=== PATIENT | male | born 1950 | race Caucasian/White ===

== ENCOUNTER → 2024-09-21 15:29 | Outpatient (REF) | payer OTHER, SELFPAY ==
[2024-09-21 14:16] LABS: % Basophils 0.4 % (0-2); % Eosinophils 1.8 % (0-6); % Immature Granulocytes 0.5 % (0-0.5); % Lymphocytes 16.4 % (20.5-51.1); % Monocytes 8.9 % (1.7-9.3); Absolute Eosinophils 0.2 10^3/uL (0-0.7); Absolute Lymphocytes 1.3 10^3/uL (1.2-3.4); Absolute Monocytes 0.7 10^3/uL (0.1-0.6); Absolute Neutrophils 5.9 10^3/uL (1.4-6.5); Hematocrit 26.7 % (39.0-52.0); Hemoglobin 7.8 g/dL (13.0-18.0); Mean Corp Hgb Conc. 29.2 g/dL (33.0-37.0); Mean Corpuscular Volume 71.8 fL (80.0-94.0); Mean Platelet Volume 11.8 fL (7.4-10.4); Nucleated Red Blood Cells % 0 % (-); Platelet Count 212 10^3/uL (130-400); Red Blood Cell Count 3.72 10^6/uL (4.70-6.10); Red Cell Dist. Width 16.5 % (11.5-14.5); White Blood Cell Count 8.1 10^3/uL (4.8-10.8)
== END ==
LOC: OIDL 15:29
PROVIDERS: ATTENDING PHYSICIAN Internal Medicine Hematology & Oncology
DX: D50.9 Iron deficiency anemia, unspecified (principal)
CPT/HCPCS: 85025

== ENCOUNTER → 2024-10-05 15:40 | Outpatient (REF) | payer OTHER, SELFPAY ==
[2024-10-05 15:36] LABS: % Basophils 0.4 % (0-2); % Immature Granulocytes 0.3 % (0-0.5); % Lymphocytes 23.9 % (20.5-51.1); % Monocytes 10.5 % (1.7-9.3); % Neutrophils 62.9 % (42.2-75.2); Absolute Eosinophils 0.1 10^3/uL (0-0.7); Absolute Lymphocytes 1.6 10^3/uL (1.2-3.4); Absolute Monocytes 0.7 10^3/uL (0.1-0.6); Absolute Neutrophils 4.3 10^3/uL (1.4-6.5); Hematocrit 29.8 % (39.0-52.0); Hemoglobin 8.8 g/dL (13.0-18.0); Mean Corp Hgb Conc. 29.5 g/dL (33.0-37.0); Mean Corpuscular Volume 77.8 fL (80.0-94.0); Mean Platelet Volume 11.6 fL (7.4-10.4); Nucleated Red Blood Cells % 0 % (-); Platelet Count 193 10^3/uL (130-400); Red Blood Cell Count 3.83 10^6/uL (4.70-6.10); White Blood Cell Count 6.9 10^3/uL (4.8-10.8)
[2024-10-05 15:41] LABS: Iron < 20 ug/dl (49-181)
[2024-10-05 15:48] LABS: Total Iron Binding Capacity 434 ug/dl (261-462)
[2024-10-05 16:12] LABS: Anisocytosis 2+; Macrocytosis 2+; Normal RBC Morphology No; Ovalocytes 2+; Tear Drop Red Blood Cells 1+
== END ==
LOC: OIDL 15:40
PROVIDERS: ATTENDING PHYSICIAN Nurse Practitioner Adult Health
DX: D50.9 Iron deficiency anemia, unspecified (principal)
CPT/HCPCS: 82728; 83540; 83550; 85025

== ENCOUNTER → 2024-11-30 08:43 | Outpatient (REF) | payer OTHER, SELFPAY ==
[2024-11-30 14:37] LABS: % Basophils 0.3 % (0-2); % Eosinophils 1.7 % (0-6); % Immature Granulocytes 0.1 % (0-0.5); % Lymphocytes 16.7 % (20.5-51.1); % Monocytes 10.4 % (1.7-9.3); % Neutrophils 70.8 % (42.2-75.2); Absolute Eosinophils 0.2 10^3/uL (0-0.7); Absolute Lymphocytes 1.5 10^3/uL (1.2-3.4); Absolute Monocytes 0.9 10^3/uL (0.1-0.6); Absolute Neutrophils 6.3 10^3/uL (1.4-6.5); Hematocrit 34.8 % (39.0-52.0); Hemoglobin 10.4 g/dL (13.0-18.0); Mean Corp Hgb Conc. 29.9 g/dL (33.0-37.0); Mean Corpuscular Hgb 23.7 pg (27.0-31.0); Mean Corpuscular Volume 79.3 fL (80.0-94.0); Mean Platelet Volume 10.7 fL (7.4-10.4); Platelet Count 175 10^3/uL (130-400); Red Blood Cell Count 4.39 10^6/uL (4.70-6.10); Red Cell Dist. Width 19.2 % (11.5-14.5); White Blood Cell Count 8.9 10^3/uL (4.8-10.8)
== END ==
LOC: OIDL 08:43
PROVIDERS: ATTENDING PHYSICIAN Nurse Practitioner Adult Health
DX: D50.9 Iron deficiency anemia, unspecified (principal)
CPT/HCPCS: 85025

== ENCOUNTER → 2024-12-07 14:29 | Outpatient (REF) | payer OTHER, SELFPAY ==
[2024-12-07 14:44] LABS: % Basophils 0.3 % (0-2); % Eosinophils 1.5 % (0-6); % Immature Granulocytes 0.1 % (0-0.5); % Lymphocytes 17.6 % (20.5-51.1); % Monocytes 10.5 % (1.7-9.3); Absolute Eosinophils 0.1 10^3/uL (0-0.7); Absolute Lymphocytes 1.3 10^3/uL (1.2-3.4); Absolute Monocytes 0.8 10^3/uL (0.1-0.6); Absolute Neutrophils 5.1 10^3/uL (1.4-6.5); Hematocrit 33.2 % (39.0-52.0); Hemoglobin 10.1 g/dL (13.0-18.0); Mean Corp Hgb Conc. 30.4 g/dL (33.0-37.0); Mean Corpuscular Hgb 23.7 pg (27.0-31.0); Mean Corpuscular Volume 77.8 fL (80.0-94.0); Mean Platelet Volume 10.8 fL (7.4-10.4); Platelet Count 167 10^3/uL (130-400); Red Blood Cell Count 4.27 10^6/uL (4.70-6.10); Red Cell Dist. Width 19.7 % (11.5-14.5); White Blood Cell Count 7.3 10^3/uL (4.8-10.8)
== END ==
LOC: OIDL 14:29
PROVIDERS: ATTENDING PHYSICIAN Nurse Practitioner Adult Health
DX: D50.9 Iron deficiency anemia, unspecified (principal)
CPT/HCPCS: 85025

== ENCOUNTER → 2025-03-11 15:18 | Outpatient (REF) | payer BC, SELFPAY ==
[2025-03-11 14:42] LABS: % Basophils 0.4 % (0-2); % Eosinophils 1.6 % (0-6); % Immature Granulocytes 0.3 % (0-0.5); % Lymphocytes 17.1 % (20.5-51.1); % Monocytes 8.1 % (1.7-9.3); % Neutrophils 72.5 % (42.2-75.2); Absolute Eosinophils 0.1 10^3/uL (0-0.7); Absolute Lymphocytes 1.3 10^3/uL (1.2-3.4); Absolute Monocytes 0.6 10^3/uL (0.1-0.6); Absolute Neutrophils 5.5 10^3/uL (1.4-6.5); Hematocrit 34.6 % (39.0-52.0); Mean Corp Hgb Conc. 31.8 g/dL (33.0-37.0); Mean Corpuscular Hgb 26.8 pg (27.0-31.0); Mean Corpuscular Volume 84.2 fL (80.0-94.0); Mean Platelet Volume 11.7 fL (7.4-10.4); Platelet Count 144 10^3/uL (130-400); Red Blood Cell Count 4.11 10^6/uL (4.70-6.10); Red Cell Dist. Width 17.2 % (11.5-14.5); White Blood Cell Count 7.6 10^3/uL (4.8-10.8)
== END ==
LOC: OIDL 15:18
PROVIDERS: ATTENDING PHYSICIAN Nurse Practitioner Adult Health
DX: K25.4 Chronic or unspecified gastric ulcer with hemorrhage (principal); D50.9 Iron deficiency anemia, unspecified; G81.90 Hemiplegia, unspecified affecting unspecified side
CPT/HCPCS: 85025

== ENCOUNTER → 2025-03-15 15:00 | Outpatient (REF) | payer BC, OTHER, SELFPAY ==
[2025-03-15 14:07] LABS: % Basophils 0.4 % (0-2); % Eosinophils 1.8 % (0-6); % Immature Granulocytes 0.1 % (0-0.5); % Lymphocytes 14.9 % (20.5-51.1); % Monocytes 9.3 % (1.7-9.3); % Neutrophils 73.5 % (42.2-75.2); Absolute Eosinophils 0.1 10^3/uL (0-0.7); Absolute Lymphocytes 1.2 10^3/uL (1.2-3.4); Absolute Monocytes 0.7 10^3/uL (0.1-0.6); Absolute Neutrophils 5.7 10^3/uL (1.4-6.5); Hematocrit 37.4 % (39.0-52.0); Mean Corp Hgb Conc. 32.1 g/dL (33.0-37.0); Mean Corpuscular Volume 84.2 fL (80.0-94.0); Platelet Count 145 10^3/uL (130-400); Red Blood Cell Count 4.44 10^6/uL (4.70-6.10); Red Cell Dist. Width 17.8 % (11.5-14.5); White Blood Cell Count 7.8 10^3/uL (4.8-10.8)
[2025-03-15 15:48] LABS: ALT (SGPT) 25 U/L (0-50); AST (SGOT) 25 U/L (17-59); Albumin 4.1 g/dl (3.5-5.0); Alkaline Phosphatase 83 U/L (38-126); Blood Urea Nitrogen 14 mg/dl (9-20); Carbon Dioxide 23 mmol/L (22-30); Chloride 111 mmol/L (98-107); Glucose 127 mg/dl (70-99); Potassium 4.4 mmol/L (3.5-5.1); Total Bilirubin 0.7 mg/dl (0.2-1.3); Total Protein 6.2 g/dl (6.3-8.2); eGFR > 60.00
[2025-03-15 16:03] LABS: Sodium 143 mmol/L (135-145)
== END ==
LOC: OIDL 15:00
PROVIDERS: ATTENDING PHYSICIAN Nurse Practitioner Adult Health
DX: K25.4 Chronic or unspecified gastric ulcer with hemorrhage (principal); D50.9 Iron deficiency anemia, unspecified; G81.90 Hemiplegia, unspecified affecting unspecified side; C16.9 Malignant neoplasm of stomach, unspecified
CPT/HCPCS: 80053; 85025

== ENCOUNTER → 2025-03-18 13:18 | Outpatient (REF) | payer OTHER, SELFPAY | LOC: RAD 13:18 | PROVIDERS: ATTENDING PHYSICIAN Internal Medicine Hematology & Oncology; FAMILY PHYSICIAN Family Medicine | DX: K25.4 Chronic or unspecified gastric ulcer with hemorrhage (principal); D50.9 Iron deficiency anemia, unspecified; G81.90 Hemiplegia, unspecified affecting unspecified side; C16.9 Malignant neoplasm of stomach, unspecified | CPT/HCPCS: 70470; 71260; 74177; Q9967 ==

== ENCOUNTER → 2025-03-22 16:03 | Outpatient (REF) | payer OTHER, SELFPAY ==
[2025-03-22 14:49] LABS: % Basophils 0.3 % (0-2); % Eosinophils 1.6 % (0-6); % Immature Granulocytes 0.1 % (0-0.5); % Lymphocytes 14.8 % (20.5-51.1); % Neutrophils 74.2 % (42.2-75.2); Absolute Eosinophils 0.1 10^3/uL (0-0.7); Absolute Monocytes 0.6 10^3/uL (0.1-0.6); Hematocrit 38.9 % (39.0-52.0); Hemoglobin 12.6 g/dL (13.0-18.0); Mean Corp Hgb Conc. 32.4 g/dL (33.0-37.0); Mean Corpuscular Hgb 27.8 pg (27.0-31.0); Mean Corpuscular Volume 85.9 fL (80.0-94.0); Mean Platelet Volume 11.1 fL (7.4-10.4); Platelet Count 125 10^3/uL (130-400); Red Blood Cell Count 4.53 10^6/uL (4.70-6.10); Red Cell Dist. Width 18.2 % (11.5-14.5); White Blood Cell Count 6.8 10^3/uL (4.8-10.8)
== END ==
LOC: OIDL 16:03
PROVIDERS: ATTENDING PHYSICIAN Nurse Practitioner Adult Health
DX: K25.4 Chronic or unspecified gastric ulcer with hemorrhage (principal); D50.9 Iron deficiency anemia, unspecified; G81.90 Hemiplegia, unspecified affecting unspecified side; C16.9 Malignant neoplasm of stomach, unspecified
CPT/HCPCS: 85025

== ENCOUNTER 2025-04-15 06:17 | Day surgery (SDC) | payer OTHER, SELFPAY ==
[2025-04-15 10:49] VITALS: BMI 31.8
[2025-04-15 11:05] VITALS: BP 152/83; BMI 31.8
--- NOTE | 2025-04-15 12:16 | PTCARENOTE ---
ok by dr trevino to proceed with procedure after taking 81mg ASA at 0200
[2025-04-15 13:57] VITALS: BP 130/63
[2025-04-15 14:00] VITALS: BP 121/63
[2025-04-15 14:15] VITALS: BP 128/67
[2025-04-15 14:30] VITALS: BP 136/67
[2025-04-15 14:45] VITALS: BP 147/76
== END 2025-04-15 15:11 | disposition home or self-care (01) ==
LOC: GI 06:17
PROVIDERS: ATTENDING PHYSICIAN Internal Medicine Gastroenterology
DX: K25.9 Gastric ulcer, unspecified as acute or chronic, without hemorrhage or perforation (principal); C16.6 Malignant neoplasm of greater curvature of stomach, unspecified; K31.89 Other diseases of stomach and duodenum; I89.9 Noninfective disorder of lymphatic vessels and lymph nodes, unspecified; K86.9 Disease of pancreas, unspecified; R93.3 Abnormal findings on diagnostic imaging of other parts of digestive tract; C16.9 Malignant neoplasm of stomach, unspecified
CPT/HCPCS: 43237; 43239; 88305; 88342; 88360

== ENCOUNTER 2025-06-29 10:49 | Inpatient (IN) | payer OTHER, SELFPAY ==
[2025-06-22 11:45] LABS: Hematocrit 36.7 % (39.0-52.0); Hemoglobin 12.1 g/dL (13.0-18.0); Mean Corp Hgb Conc. 33.0 g/dL (33.0-37.0); Mean Corpuscular Volume 88.9 fL (80.0-94.0); Platelet Count 147 10^3/uL (130-400); Red Cell Dist. Width 13.7 % (11.5-14.5)
[2025-06-22 11:56] LABS: INR 1.08; PT 14.3 Sec (11.4-14.6)
[2025-06-22 11:57] LABS: APTT 29.2 Sec (23.4-35.0)
[2025-06-22 12:07] LABS: ALT (SGPT) 16 U/L (0-50); AST (SGOT) 17 U/L (17-59); Albumin 4.0 g/dl (3.5-5.0); Alkaline Phosphatase 70 U/L (38-126); Blood Urea Nitrogen 14 mg/dl (9-20); Calcium 9.1 mg/dl (8.4-10.2); Carbon Dioxide 27 mmol/L (22-30); Chloride 108 mmol/L (98-107); Glucose 129 mg/dl (70-99); Potassium 4.5 mmol/L (3.5-5.1); Sodium 141 mmol/L (135-145); Total Protein 6.3 g/dl (6.3-8.2); eGFR > 60.00
[2025-06-22 13:27] VITALS: BMI 29.4
[2025-06-29] VITALS (14 sets, daily range): BP systolic 121–167; BP diastolic 57–103; BMI 29.4; BMI 29.9
[2025-06-29] MEDS: TYLENOL 1000 MG PO (11:37)
[2025-06-29] MEDS: NORMOSOL-R/PLASMALYTE-A 1000 IV (11:38)
[2025-06-29] MEDS: NEURONTIN 300 MG PO (11:38)
[2025-06-29] MEDS: HEPARIN 5000 UNITS SC ×2 (12:08→20:04)
--- NOTE | 2025-06-29 17:34 | CON.HOSP ---
Family Physician
-
Family Physician: Leeanne Siu
Chief Complaint
-
Medical consultation postgastrectomy for malignant neoplasm
History of Present Illness
75-year-old male status post gastrectomy with Ese-en- Y anastomosis secondary to malignant neoplasm with tumor invading into liver. The patient is currently in PACU post recovery with oral airway, NG tube placement with scant amount sanguinous
drainage and Estevez catheter draining yellow in color. He is hemodynamically stable. On 04/15/2025 he had EGD and endoscopic ultrasound performed by Dr. René Mitchell showing a 3 cm ulcerated lesion in the greater curvature portion of the body of the
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 The patient has no current fever, chills,
rash, diaphoresis, wheezing, vomiting, diarrhea.
The patient has past medical history of COPD, active smoker 1 pack a day per chart history, hypertension, GERD, CHF, gastric ulcer age 14.
Medical History
Past Medical History
Past Medical History: Reports Other
Additional Past Medical History:
COPD
active smoker 1 pack a day per chart history
Hypertension
GERD
CHF
gastric ulcer age 14
Past Surgical History: Reports Other
Additional Past Surgical History:
post gastrectomy with Ese-en- Y anastomosis secondary to malignant neoplasm with tumor invading into liver 06/29/2025
Social History
Unable to obtain full social history at this time due to: Other (Patient sedation post PACU)
Tobacco: Smoker (1 pack a day)
Family History
Family History: Unable to Obtain (Patient currently in PACU sedated)
Allergies / Home Medications
Allergies reflects when Allergies were last updated in [employer]
Home Medications with original date entered in [employer]
Allergy/Medication List:
Allergies
Allergy/AdvReac Type Severity Reaction Status Date / Time
[facility]ion ([facility] Allergy 'very out Verified 06/29/25 11:17
of it,
couldn't
focus on
anything'
lidocaine (From Xylocaine) Allergy Anaphylaxis Verified 06/29/25 11:17
in dental
office
paroxetine (From Paxil) Allergy 'very out Verified 06/29/25 11:17
of it,
couldn't
focus on
anything'
pollen extracts Allergy seasonal Verified 06/29/25 11:17
allergies
sertraline (From Zoloft) Allergy 'very out Verified 06/29/25 11:17
of it,
couldn't
focus on
anything'
Home Medications
albuterol sulfate 90 mcg/actuation aerosol inhaler (Ventolin HFA) 2 puff inhalation QID PRN SOB 04/15/25
aspirin 81 mg tablet 81 mg PO DAILY 04/15/25
atorvastatin 40 mg tablet 40 mg PO HS 04/15/25
clonidine HCl 0.2 mg tablet 0.2 mg PO BID 04/15/25
fluticasone furoate 200 mcg-vilanterol 25 mcg/dose inhalation powder (Breo Ellipta) 1 inh inhalation DAILY 04/15/25
hydralazine 50 mg tablet 50 mg PO BID 04/15/25
lisinopril 40 mg tablet 40 mg PO DAILY 04/15/25
nebivolol 10 mg tablet 10 mg PO HS 04/15/25
pantoprazole 40 mg tablet,delayed release (Protonix) 40 mg PO HS 04/15/25
umeclidinium 62.5 mcg/actuation blister powder for inhalation (Incruse Ellipta) 1 inh inhalation DAILY 04/15/25
buspirone 5 mg tablet 5 mg PO BID 06/22/25
furosemide 20 mg tablet 20 mg PO Q48H 06/22/25
Review of Systems
-
History Source: Physician and Other (PACU nurse plus chart)
A 12 point Review of Systems was completed except as noted: Yes
Constitutional: Denies Fever or Chills
EENT: Reports Other (NG tube in place draining scant amount sanguinous drainage, oral airway still in place postop anesthesia)
Respiratory: Denies Trouble Breathing or Other (No wheezing)
Cardiac: Denies Diaphoresis
Abdomen/GI: Denies Vomiting or Diarrhea
: Reports Estevez (Draining yellow in color)
Musculoskeletal: Denies Joint Swelling or Edema
Skin: Denies Rash
Psych: Reports Other (Sedated postop anesthesia)
Physical Exam
Vital Signs
Vital Signs
Temp Pulse Resp BP Pulse Ox
98.7 F 74 16 123/66 96
06/29/25 11:25 06/29/25 11:25 06/29/25 11:25 06/29/25 11:25 06/29/25 11:25
Physical Exam
General: Other (NG tube in place draining scant amount sanguinous drainage, oral airway still in place postop anesthesia); Negative Fever or Chills
HEENT: Normocephalic and Oxygen
Respiratory: Clear; Negative Wheezes, Rales or Rhonchi
Cardiac: S1/S2 and Regular Rhythm; Negative Murmur, Rub or Peripheral Edema
GI: Soft and Other (Incisions intact to abdomen ice pack in place)
Genito-urinary: Estevez Catheter (Draining yellow in color)
Musculoskeletal: No Clubbing, No Cyanosis and No Edema
Skin: Warm and Dry; Negative Rash
Neuro: Other (NG tube in place draining scant amount sanguinous drainage, oral airway still in place postop anesthesia)
Psych: Other (Currently still sedated postop anesthesia)
Laboratory Results
-
PT 14.3 Sec (11.4-14.6) 06/22/25 09:23
INR 1.08 06/22/25 09:23
APTT 29.2 Sec (23.4-35.0) 06/22/25 09:23
Total Bilirubin 0.6 mg/dl (0.2-1.3) 06/22/25 09:23
AST 17 U/L (17-59) 06/22/25 09:23
ALT 16 U/L (0-50) 06/22/25 09:23
Alkaline Phosphatase 70 U/L (38-126) 06/22/25 09:23
Impression / Plan
-
Medical consultation
Inpatient MedSurg
#Status post gastrectomy with Ese-en- Y anastomosis secondary to malignant neoplasm with tumor invading into liver
- Continue NG tube to low intermittent suction
- N.p.o.
-IV Normosol 50 cc an hour
- Pain control per attending Dr. Petey Sweeney
- IV Protonix 40 mg daily
- IV cefazolin
- Follow CBC, CMP, INR-pending on admission
#Hx gastric ulcer age 14
-Continue IV Protonix
#COPD no acute exacerbation
#Active smoker-1 pack a day per nurse at bedside
-Cessation order advisement
-nicotine patch 21 mg
- Continue Incruse Ellipta
- Albuterol nebs as needed
#HTN�benign
- Hold p.o. hydralazine, lisinopril,
-IV hydralazine 10 mg every 6 hours SBP> 165 BEEBE>110
#HLD
Hold atorvastatin 40 mg daily
DVT prophylaxis
Subcu heparin
Full code
[2025-06-29 17:57] LABS: Hematocrit 32.7 % (39.0-52.0); Hemoglobin 10.8 g/dL (13.0-18.0); Mean Corp Hgb Conc. 33.0 g/dL (33.0-37.0); Mean Corpuscular Volume 87.7 fL (80.0-94.0); Platelet Count 136 10^3/uL (130-400); Red Cell Dist. Width 13.6 % (11.5-14.5)
[2025-06-29] MEDS: DILAUDID 0.5 MG IV ×2 (18:00→18:14)
[2025-06-29 18:19] LABS: ALT (SGPT) 37 U/L (0-50); AST (SGOT) 39 U/L (17-59); Albumin 3.4 g/dl (3.5-5.0); Alkaline Phosphatase 63 U/L (38-126); Blood Urea Nitrogen 14 mg/dl (9-20); Calcium 7.8 mg/dl (8.4-10.2); Carbon Dioxide 25 mmol/L (22-30); Chloride 108 mmol/L (98-107); Estimated Creatinine Clearance 75 ml/min; Glucose 126 mg/dl (70-99); Potassium 4.3 mmol/L (3.5-5.1); Sodium 138 mmol/L (135-145); Total Protein 5.5 g/dl (6.3-8.2); eGFR > 60.00
[2025-06-29 18:26] LABS: INR 1.12; PT 15.0 Sec (11.4-14.6)
--- NOTE | 2025-06-29 20:00 | PTCARENOTE ---
Pt arrived to [address] [place] [address] at 2000 from PACU. Pt AAOx3, drowsy. R NGT connected to low intermittent suction per order. IVF initiated per order. Admission assessment complete. Pt educated on plan of care including pain management, diet, and nausea
control. IV Zofran given per order. Pt oriented to room, call sullivan within reach, bed locked and in lowes position. Daughter and son-in-law at bedside.
--- NOTE | 2025-06-29 20:00 | W.PN.UPDATE ---
Update Note
Progress Note Update
This is an addendum to H&P written by Yajaira Benson on 06/29/2025. �Patient seen and examined independently with PAPERBACK MACHINE OPERATOR.
75-year-old male past medical history of COPD, current smoker, hypertension, hyperlipidemia, gastric ulcer, GERD, CHF, iron deficiency anemia, presenting for elective gastrectomy with Ese-en-Y anastomosis for recently diagnosed gastric
adenocarcinoma that is invaded the liver.
No operative complications. �Patient has NG tube and Estevez catheter.
Labs show hemoglobin of 10.8.
Hospitalist consult for medication management this patient will be strict NPO. �Continue IV fluids. �Hold all oral medications. �Hold Lasix. �As needed hydralazine in place of antihypertensive medications.
[2025-06-29] MEDS: D5/0.9% SODIUM CHLORIDE 1000 IV (20:04)
[2025-06-29] MEDS: ZOFRAN 4 MG IV (20:45)
[2025-06-29] MEDS: SYMBICORT 160/4.5 MCG INHALER INH (22:34)
[2025-06-29] MEDS: ANCEF 10 IV (23:24)
[2025-06-30] MEDS: D5/0.9% SODIUM CHLORIDE 1000 IV ×3 (03:23→23:19)
[2025-06-30] MEDS: MORPHINE SULFATE 4 MG IV ×3 (03:31→11:26)
[2025-06-30 05:24] VITALS: BP 132/60
[2025-06-30 06:14] LABS: Hematocrit 30.4 % (39.0-52.0); Hemoglobin 9.8 g/dL (13.0-18.0); Mean Corp Hgb Conc. 32.2 g/dL (33.0-37.0); Mean Corpuscular Volume 88.4 fL (80.0-94.0); Platelet Count 140 10^3/uL (130-400); Red Cell Dist. Width 13.5 % (11.5-14.5)
[2025-06-30 06:31] LABS: INR 1.13; PT 15.1 Sec (11.4-14.6)
[2025-06-30 06:43] LABS: ALT (SGPT) 38 U/L (0-50); AST (SGOT) 41 U/L (17-59); Albumin 3.2 g/dl (3.5-5.0); Alkaline Phosphatase 53 U/L (38-126); Blood Urea Nitrogen 14 mg/dl (9-20); Calcium 7.7 mg/dl (8.4-10.2); Carbon Dioxide 27 mmol/L (22-30); Chloride 110 mmol/L (98-107); Estimated Creatinine Clearance 75 ml/min; Glucose 163 mg/dl (70-99); Potassium 4.2 mmol/L (3.5-5.1); Sodium 139 mmol/L (135-145); Total Protein 5.1 g/dl (6.3-8.2); eGFR > 60.00
--- NOTE | 2025-06-30 07:40 | W.PN.HOSP.TC ---
Today's Communication/Plan
-
See plan
Assessment / Plan
Assessment / Plan
Physical Exam
General: Other (NG tube in place draining drainage)
HEENT: Normocephalic
Respiratory: Clear Bilaterally
Cardiac: S1/S2 and Regular Rhythm
GI: Soft and Other (Incisions intact to abdomen ice pack in place)
Genito-urinary: Estevez Catheter (Draining yellow in color)
Musculoskeletal:No Cyanosis and No Edema
Skin: Warm and Dry
Neuro: AAOx3.
Psych: Other (Currently still sedated postop anesthesia)
Assessment/Plan
75-year-old male with past medical history of COPD, current smoker, hypertension, hyperlipidemia, gastric ulcer, GERD, CHF, iron deficiency anemia, history of gastric ulcer presenting for elective gastrectomy with Ese-en-Y anastomosis for recently
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 No operative complications. Patient has NG tube and Estevez catheter. Labs show hemoglobin of 10.8. Hospitalist consult for medication management this patient will be strict NPO. Continue IV
fluids. Hold all oral medications. Hold Lasix. As needed hydralazine in place of antihypertensive medications.
#Status post gastrectomy with Ese-en- Y anastomosis secondary to malignant neoplasm with tumor invading into liver
- Continue NG tube to low intermittent suction but OOB to chair and ambulate and okay to Clamp NGT while ambulating
- Strict N.p.o.
- Pain control per attending Dr. Petey Sweeney
- IV Protonix 40 mg daily
- IV cefazolin
- Follow CBC, CMP, INR
#Hx gastric ulcer age 14
-Continue IV Protonix
#COPD no acute exacerbation
#Active smoker-1 pack a day per nurse at bedside
-Cessation order advisement
-nicotine patch 21 mg
- Continue Incruse Ellipta
- Albuterol nebs as needed
#HTN�benign
- Hold p.o. hydralazine, lisinopril,
-IV hydralazine 10 mg every 6 hours SBP> 165 BEEBE>110
#HLD
Hold atorvastatin 40 mg daily
#COPD, current smoker, CHF?, iron deficiency anemia
DVT prophylaxis
Subcu heparin
Full code
Anticipated Discharge: > 48 hours
Subjective/Interval History
-
Date of Service: June 30, 2025
Patient was seen and examined. He reported abdominal pain from his surgery as expected. Otherwise denied chest pain, SOB, fever.
Objective Data
-
Labs:
Laboratory Results
06/30/25
05:38
WBC 14.8 H
Hgb 9.8 L
Hct 30.4 L
Plt Count 140
PT 15.1 H
INR 1.13
Sodium 139
Potassium 4.2
Chloride 110 H
Carbon Dioxide 27
BUN 14
Creatinine 0.9
Glucose 163 H
Calcium 7.7 L
Total Bilirubin 0.4
AST 41
ALT 38
Alkaline Phosphatase 53
Vital Signs:
Vital Signs
Temp Pulse Resp BP Pulse Ox
98.5 F 70 16 132/60 95
06/30/25 05:24 06/30/25 05:24 06/30/25 05:24 06/30/25 05:24 06/30/25 05:24
I&O
06/29/25 06/30/25 07/01/25
06:59 06:59 06:59
Intake Total 185 / 185
Output Total 1425 / 1425
Balance -1240 / -1240
[2025-06-30 07:45] VITALS: BP 118/55
[2025-06-30] MEDS: SPIRIVA RESPIMAT 2.5 MCG 2 PUFF INH (07:57)
[2025-06-30] MEDS: SYMBICORT 160/4.5 MCG INHALER 2 PUFF INH ×2 (07:57→20:27)
[2025-06-30] MEDS: HEPARIN 5000 UNITS SC ×2 (08:55→19:34)
[2025-06-30] MEDS: NICODERM TRANSDERMAL TRANSDERM (08:55)
[2025-06-30] MEDS: MORPHINE SULFATE 2 MG IV (08:55)
[2025-06-30] MEDS: NSS (PRESERVATIVE FREE) 10 ML IV (08:55)
[2025-06-30] MEDS: PROTONIX IV 40 MG IV (08:55)
[2025-06-30 11:20] VITALS: BP 124/65
--- NOTE | 2025-06-30 12:47 | W.PN.GENERIC ---
Assessment / Plan
-
S/p partial gastrectomy and liver resection POD #1
Stable
Dec Hg noted due to perioperative blood loss. No evidence of active bleeding
OOB to chair and ambulate
Ok to Clamp NGT while ambulating
Await path results
Continue current care
Physician Progress Note
Subjective
C/o incisional pain wiley when moving. No N/V
Objective
Vital Signs
Temp Pulse Resp BP Pulse Ox
98.1 F 74 18 124/65 98
06/30/25 11:20 06/30/25 11:20 06/30/25 11:20 06/30/25 11:20 06/30/25 11:20
Lab Results
06/30/25 05:38
06/30/25 05:38
Abdomen - some distention but soft. Incision - CDI
--- NOTE | 2025-06-30 14:05 | CM ---
Initial assessment completed with patient with daughter in room. Patient lives alone in a 1 story Bungalow with no basement and no steps to enter. 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 He does have a RW in the home. Patient
states he has cervical stenosis and he needs the cane for stability because his L side is weak. Daughter said his R side is also getting weak. Patient plans on scheduling surgery for correction. No in-home services. No HC POA. PCP is Dr. Fallon
[facility] and Pharmacy is [facility] in [place]. Discharge POC: Anticipate [facility] RN. Await therapy eval for additional recommendations. Preference is [facility]. Referral forwarded.
[2025-06-30 15:00] VITALS: BP 146/74
[2025-06-30] MEDS: TORADOL 15 MG IV ×2 (15:19→21:06)
[2025-06-30 19:00] VITALS: BP 148/68
[2025-06-30] MEDS: CATAPRES-TTS-1 0.1 MG TRANSDERM (21:09)
[2025-06-30] MEDS: CATAPRES-TTS-3 0.3 MG TRANSDERM (21:15)
[2025-06-30] MEDS: CHLORASEPTIC/SORE THROAT SPRAY 1 SPRAY PO (22:27)
[2025-06-30 23:00] VITALS: BP 156/69
[2025-07-01] VITALS (10 sets, daily range): BP systolic 107–184; BP diastolic 66–96; PULSE 90
[2025-07-01] MEDS: TORADOL 15 MG IV ×4 (01:38→19:21)
[2025-07-01 07:20] LABS: Blood Urea Nitrogen 14 mg/dl (9-20); Calcium 7.6 mg/dl (8.4-10.2); Carbon Dioxide 25 mmol/L (22-30); Chloride 113 mmol/L (98-107); Estimated Creatinine Clearance 84 ml/min; Glucose 127 mg/dl (70-99); Potassium 3.8 mmol/L (3.5-5.1); Sodium 141 mmol/L (135-145); eGFR > 60.00
[2025-07-01 07:45] LABS: Hematocrit 27.3 % (39.0-52.0); Hemoglobin 8.8 g/dL (13.0-18.0); Mean Corp Hgb Conc. 32.2 g/dL (33.0-37.0); Mean Corpuscular Volume 88.1 fL (80.0-94.0); Nucleated Red Blood Cells % 0 % (-); Red Cell Dist. Width 13.7 % (11.5-14.5)
[2025-07-01] MEDS: APRESOLINE 10 MG IV ×2 (08:03→16:49)
[2025-07-01] MEDS: HEPARIN 5000 UNITS SC ×2 (08:05→19:44)
[2025-07-01] MEDS: PROTONIX IV 40 MG IV (08:05)
[2025-07-01] MEDS: NSS (PRESERVATIVE FREE) 10 ML IV (08:05)
[2025-07-01] MEDS: NICODERM TRANSDERMAL TRANSDERM (08:06)
[2025-07-01] MEDS: D5/0.9% SODIUM CHLORIDE 1000 IV ×2 (08:16→18:48)
[2025-07-01] MEDS: SYMBICORT 160/4.5 MCG INHALER 2 PUFF INH ×2 (08:39→19:59)
[2025-07-01] MEDS: SPIRIVA RESPIMAT 2.5 MCG 2 PUFF INH (08:39)
[2025-07-01 09:01] LABS: Platelet Count 118 10^3/uL (130-400)
--- NOTE | 2025-07-01 10:30 | W.PN.HOSP.TC ---
Today's Communication/Plan
-
See plan
Assessment / Plan
Assessment / Plan
Physical Exam
General: Other (NG tube in place draining drainage)
HEENT: Normocephalic
Respiratory: Clear Bilaterally
Cardiac: S1/S2 and Regular Rhythm
GI: Soft and Other (Incisions intact to abdomen ice pack in place)
Genito-urinary: Estevez Catheter (Draining yellow in color)
Musculoskeletal:No Cyanosis and No Edema
Skin: Warm and Dry
Neuro: AAOx3.
Psych: Other (Currently still sedated postop anesthesia)
Assessment/Plan
75-year-old male with past medical history of COPD, current smoker, hypertension, hyperlipidemia, gastric ulcer, GERD, CHF, iron deficiency anemia, history of gastric ulcer presenting for elective gastrectomy with Ese-en-Y anastomosis for recently
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 No operative complications. Patient has NG tube and Estevez catheter. Labs show hemoglobin of 10.8. Hospitalist consult for medication management this patient will be strict NPO. Continue IV
fluids. Hold all oral medications. Hold Lasix. As needed hydralazine in place of antihypertensive medications.
#Status post gastrectomy with Ese-en- Y anastomosis secondary to malignant neoplasm with tumor invading into liver
- Stop NG tube
- Strict N.p.o. with ice chips
- Pain control per attending Dr. Pteey Sweeney
- IV Protonix 40 mg daily
- IV cefazolin
- Follow CBC, CMP, INR
#Anemia
- Post-op, decreasing
- Monitor
#History of gastric ulcer age 14
-Continue IV Protonix
#COPD no acute exacerbation
#Active smoker-1 pack a day per nurse at bedside
-Cessation order advisement
-nicotine patch 21 mg
- Continue Incruse Ellipta
- Albuterol nebs as needed
#HTN�benign
- Hold p.o. meds given stricts NPO
- Clonidine patch placed on 06/30/25
- IV Low Dose scheduled Metoprolol started in place of Nebivolol
-IV hydralazine 10 mg every 6 hours SBP> 165 BEEBE>110
#HLD
- Hold atorvastatin 40 mg daily
#COPD, current smoker, CHF?, iron deficiency anemia
DVT Prophylaxis: Subcutaneous heparin
Code Status: Full code
Anticipated Discharge: > 48 hours
Subjective/Interval History
-
Date of Service: July 01, 2025
Patient was seen and examined. No new symptoms or complaints according to him.
Objective Data
-
Labs:
Laboratory Results
07/01/25
05:33
WBC 11.1 H
Hgb 8.8 L
Hct 27.3 L
Plt Count 118 L
Sodium 141
Potassium 3.8
Chloride 113 H
Carbon Dioxide 25
BUN 14
Creatinine 0.8
Glucose 127 H
Calcium 7.6 L
Vital Signs:
Vital Signs
Temp Pulse Resp BP Pulse Ox
98.3 F 86 16 184/88 94
07/01/25 07:10 07/01/25 08:45 07/01/25 08:45 07/01/25 07:10 07/01/25 08:45
I&O
06/30/25 07/01/25 07/02/25
06:59 06:59 06:59
Intake Total 185 / 185 0 / 0 300 / 300
Output Total 1475 / 1475 1075 / 1075 1125 / 1125
Balance -1290 / -1290 -1075 / -1075 -825 / -825
[2025-07-01] MEDS: MORPHINE SULFATE 2 MG IV ×2 (11:01→22:58)
--- NOTE | 2025-07-01 11:48 | W.PN.GENERIC ---
Assessment / Plan
-
S/p partial gastrectomy with liver resection POD #2
Stable
NGT dc'd
Keep pt NPO with only ice chips
If he continues to do well, will start clear liquid
Dec Hg - perioperative blood loss and dilutional
Will follow
OOB and ambulate
Await path
Physician Progress Note
Subjective
C/o incisional pain ow no nausea
Objective
Vital Signs
Temp Pulse Resp BP Pulse Ox
98.3 F 84 16 172/92 96
07/01/25 11:40 07/01/25 11:40 07/01/25 11:40 07/01/25 11:40 07/01/25 11:40
Lab Results
07/01/25 05:33
07/01/25 05:33
Abdomen - soft. incision - CDI
NGT with min output
[2025-07-01] MEDS: LOPRESSOR 2.5 MG IV ×3 (12:52→21:36)
--- NOTE | 2025-07-01 13:58 | CM ---
CM following re: discharge planning.
Reviewed pt's chart, met with pt and 2 cousins at bedside.
Pt is POD#1 S/p partial gastrectomy and liver resection, continue supportive care.
PT and OT evaluations noted - SNF level of care recommended. Pt is aware, expressed his agreement. A list of SNFs provided, pt preferred [facility]. A referral to [facility] made.
D/C plan: [facility] when medically stable.
CM will follow with discharge plan updates as hospitalization progresses
[2025-07-01] MEDS: ZOFRAN 4 MG IV (19:21)
--- NOTE | 2025-07-01 21:25 | W.PN.UPDATE ---
Update Note
Progress Note Update
RN reports patient HR in 140's-150's Rapid Afib 140/95 98.6, 16, 95%. Patient seen and evaluated. States he was trying to urinate and panicked as he was afraid he was going to wet the bed and that's when his HR went up. Denies any hx of Afib and was
placed on Nobivolol for BP and Furosemide for swelling/ CHF? Lungs clear, HR irregular, +BS 4 quad, voiding without difficulty in urinal, Denies any chest pain, shortness of breath, dizziness or lightheaded at present. Hx of lymphedema, COPD, HF?
EKG noted, labs ordered.
Metoprolol total 7.5mg IV given total
Troponin 0.016, K 3.3, Mag 1.[address] to replete.
HR remains 130's-160's. BP 120/60's Cardizem 10mg IVx1
HR 120's-140's BP 135/[address] at 5mg/hr.
2345 converted to NSR
0045 HR 60's Cardizem infusion at 2.5mg/hr
0120 HR less than 60's, will discontinue Cardizem drip.
Likely due to electrolyte imbalances?
TSH pending
[2025-07-01 21:44] LABS: Hematocrit 30.4 % (39.0-52.0); Hemoglobin 10.1 g/dL (13.0-18.0); Mean Corp Hgb Conc. 33.2 g/dL (33.0-37.0); Mean Corpuscular Volume 85.9 fL (80.0-94.0); Platelet Count 141 10^3/uL (130-400); Red Cell Dist. Width 13.4 % (11.5-14.5)
[2025-07-01] MEDS: LOPRESSOR 5 MG IV (21:54)
[2025-07-01 21:55] LABS: Blood Urea Nitrogen 9 mg/dl (9-20); Calcium 8.3 mg/dl (8.4-10.2); Carbon Dioxide 25 mmol/L (22-30); Chloride 109 mmol/L (98-107); Estimated Creatinine Clearance 96 ml/min; Glucose 140 mg/dl (70-99); Magnesium 1.9 mg/dl (1.6-2.3); Potassium 3.3 mmol/L (3.5-5.1); Sodium 138 mmol/L (135-145); eGFR > 60.00
[2025-07-01 22:07] LABS: Troponin I 0.016 ng/ml
[2025-07-01] MEDS: KCL 270 MEQ IV (22:28)
[2025-07-01] MEDS: CARDIZEM 10 MG IV (22:38)
[2025-07-01] MEDS: MAGNESIUM SULFATE 102 GRAMS IV (22:46)
[2025-07-01] MEDS: CARDIZEM 125 IV (23:11)
--- NOTE | 2025-07-01 23:20 | PTCARENOTE ---
Pt OOB to void and heart rate spiked to 190s and pt in rapid afib. Assisted pt back to bed. Remained in afib with heart rate 140s-160s. BP 140/95. Afebrile. Room air sat 95%. House provider notified. EKG done. Bloods drawn and sent to lab. Pt given
lopressor 2.5mg IV without improvement. Given lopressor 5mg IV without improvement. Pt then given cardizem 10mg IV. Heart rate 130s. Cardizem gtt started at 5mg/hr. Will continue to monitor closely.
[2025-07-02] MEDS: LOPRESSOR IV ×2 (00:18→14:22)
[2025-07-02] MEDS: TORADOL 15 MG IV ×4 (01:09→18:23)
[2025-07-02 03:00] VITALS: BP 120/68
[2025-07-02] MEDS: D5/0.9% SODIUM CHLORIDE 1000 IV ×2 (04:42→15:48)
[2025-07-02 05:53] LABS: Hematocrit 27.6 % (39.0-52.0); Hemoglobin 9.0 g/dL (13.0-18.0); Mean Corp Hgb Conc. 32.6 g/dL (33.0-37.0); Mean Corpuscular Volume 87.3 fL (80.0-94.0); Platelet Count 121 10^3/uL (130-400); Red Cell Dist. Width 13.4 % (11.5-14.5)
[2025-07-02] MEDS: LOPRESSOR 2.5 MG IV (06:12)
[2025-07-02 06:17] LABS: Blood Urea Nitrogen 10 mg/dl (9-20); Calcium 8.2 mg/dl (8.4-10.2); Carbon Dioxide 25 mmol/L (22-30); Chloride 114 mmol/L (98-107); Estimated Creatinine Clearance 96 ml/min; Glucose 119 mg/dl (70-99); Magnesium 2.2 mg/dl (1.6-2.3); Potassium 3.8 mmol/L (3.5-5.1); Sodium 142 mmol/L (135-145); Troponin I 0.034 ng/ml; eGFR > 60.00
[2025-07-02 07:05] VITALS: BP 125/58
--- NOTE | 2025-07-02 07:27 | W.PN.HOSP.TC ---
Today's Communication/Plan
-
Continue to monitor on telemetry
See plan
Assessment / Plan
Assessment / Plan
Physical Exam
General: Other (NG tube in place draining drainage)
HEENT: Normocephalic
Respiratory: Clear Bilaterally
Cardiac: S1/S2 and Regular Rhythm
GI: Soft and Other (Incisions intact to abdomen ice pack in place)
Genito-urinary: Estevez Catheter (Draining yellow in color)
Musculoskeletal:No Cyanosis and No Edema
Skin: Warm and Dry
Neuro: AAOx3.
Psych: Other (Currently still sedated postop anesthesia)
Assessment/Plan
75-year-old male with past medical history of COPD, current smoker, hypertension, hyperlipidemia, gastric ulcer, GERD, CHF, iron deficiency anemia, history of gastric ulcer presenting for elective gastrectomy with Ese-en-Y anastomosis for recently
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 No operative complications. Patient has NG tube and Estevez catheter. Labs show hemoglobin of 10.8. Hospitalist consult for medication management this patient will be strict NPO. Continue IV
fluids. Hold all oral medications. Hold Lasix. As needed hydralazine in place of antihypertensive medications.
#Status post gastrectomy with Ese-en- Y anastomosis secondary to malignant neoplasm with tumor invading into liver
- Stop NG tube
- Diet advanced as per Dr. Sweeney
- Pain control per attending Dr. Petey Sweeney
- IV Protonix 40 mg daily
- IV cefazolin
- Follow CBC, CMP, INR
#Atrial Fibrillation with Rapid Ventricular Response
#Episodes of Asymptomatic Bradycardia
-IV Cardizem was given -- converted to normal sinus rhythm after that
-PRN IV Metoprolol
-30 days of AC when OK from surgical perspective -- I communicated with Dr. Sweeney on 07/02/25, and he recommended that if patient's Hgb is stable for another day, then can start Eliquis
-Additionally, he should follow up with his primary field consultant for consideration of a 30 day monitor to eval for AF
-Continue to monitor on telemetry
#Anemia
- Post-op, decreasing
- Monitor
#History of gastric ulcer age 14
-Continue IV Protonix
#COPD no acute exacerbation
#Active smoker-1 pack a day per nurse at bedside
-Cessation order advisement
-nicotine patch 21 mg
- Continue Incruse Ellipta
- Albuterol nebs as needed
#HTN�benign
- Hold p.o. meds given stricts NPO
- Clonidine patch placed on 06/30/25
- IV Low Dose scheduled Metoprolol started in place of Nebivolol
-IV hydralazine 10 mg every 6 hours SBP> 165 EBEBE>110
#HLD
- Hold atorvastatin 40 mg daily
#COPD, current smoker, CHF?, iron deficiency anemia
DVT Prophylaxis: Subcutaneous heparin
Code Status: Full code
Anticipated Discharge: > 48 hours
Subjective/Interval History
-
Date of Service: July 02, 2025
Patient was seen and examined. He denied any complaints.
Objective Data
-
Labs:
Laboratory Results
07/01/25 07/02/25
21:33 05:47
WBC 12.3 H 8.7
Hgb 10.1 L 9.0 L
Hct 30.4 L 27.6 L
Plt Count 141 121 L
Sodium 138 142
Potassium 3.3 L 3.8
Chloride 109 H 114 H
Carbon Dioxide 25 25
BUN 9 10
Creatinine 0.7 0.7
Glucose 140 H 119 H
Calcium 8.3 L 8.2 L
Vital Signs:
Vital Signs
Temp Pulse Resp BP Pulse Ox
98.8 F 65 16 135/69 95
07/02/25 03:00 07/02/25 06:12 07/02/25 03:00 07/02/25 06:12 07/02/25 03:00
I&O
07/01/25 07/02/25 07/03/25
06:59 06:59 06:59
Intake Total 0 / 0 1300 / 1300 1994
Output Total 1075 / 1075 2625 / 2625
Balance -1075 / -1075 -1325 / -1325 1994
[2025-07-02] MEDS: SPIRIVA RESPIMAT 2.5 MCG 2 PUFF INH (08:08)
[2025-07-02] MEDS: SYMBICORT 160/4.5 MCG INHALER 2 PUFF INH ×2 (08:08→18:32)
[2025-07-02] MEDS: HEPARIN 5000 UNITS SC ×2 (08:48→21:01)
[2025-07-02] MEDS: NICODERM TRANSDERMAL TRANSDERM (08:49)
[2025-07-02] MEDS: PROTONIX IV 40 MG IV (08:49)
[2025-07-02] MEDS: NSS (PRESERVATIVE FREE) 10 ML IV (08:50)
--- NOTE | 2025-07-02 08:50 | PN.CDI ---
CDI
- -
CDI:
Physician Documentation Request
Admit Date: 06/29/25 10:49
Dear Doctor Charanjit,
Patient admitted for gastrectomy.
07/01 Hospitalist PN: 'Anemia - Post-op, decreasing'
07/01 Surgery PN: 'Dec Hg - perioperative blood loss and dilutional'
Laboratory Tests
06/22/25 06/30/25 07/01/25
09:23 05:38 05:33
Hgb 12.1 L 9.8 L 8.8 L
Hct 36.7 L 30.4 L 27.3 L
Based on the above, could you clarify, in your progress note, which of the following is the most likely type of anemia you are evaluating, monitoring and/or treating?
Acute anemia multifactorial blood loss and hemodilution
Acute blood loss anemia
Other
Unable to determine
Use of terms such as suspected, likely, concern for, or probable (associated with a specific diagnosis that is being evaluated, monitored, or treated as if it exists) are acceptable and can be coded in the inpatient setting, when documented at the
time of discharge.
Thank you,
Nesha Willoughby RN, BSN
CDI Specialist
Available via [place] text
Please use your independent medical judgment in providing your response.
--- NOTE | 2025-07-02 09:22 | W.PN.GENERIC ---
Assessment / Plan
-
S/p Partial gastrectomy with liver resection POD #3
Stable
Went to AF earlier today then converted back to NSR
management as per cardiology
Did ok without NGT
Will start liquid diet today
ok to conver some IV meds to PO if necessary. If continues to do well with liquid, we can convert all IV to PO meds tomorrow.
OOB and ambulate
Await pathology results
Physician Progress Note
Subjective
Feeling well. Incisional pain better controlled. No n/v
Objective
Vital Signs
Temp Pulse Resp BP Pulse Ox
98.4 F 71 16 125/58 96
07/02/25 07:05 07/02/25 08:11 07/02/25 08:11 07/02/25 07:05 07/02/25 08:11
Lab Results
07/02/25 05:47
07/02/25 05:47
Abdomen - soft ND. Incision CDI
--- NOTE | 2025-07-02 09:47 | CON.CAR ---
Addendum entered and electronically signed by Chandler Hardy MD 07/02/25 13:35:
- Additionally, he should follow up with his primary automat car attendant for consideration of a 30 day monitor to eval for AF
Addendum entered and electronically signed by Chandler Hardy MD 07/02/25 13:34:
I saw and examined the patient.
The ENTRY LEVEL SOFTWARE DEVELOPER's note was reviewed and I agree with the note.
Comment: 75 yo male with HTN, COPD, smoker, HLD and gastric cancer, who presents for elective gastrectomy for recently diagnosed gastric cancer. He is s/p partial gastrectomy with liver resection by Dr. Sweeney on 06/29/25. Post-op he developed rapid
Afib treated with IV Lopressor then IV Cardizem and he converted back to NSR.
- Recommend 30 days of AC when OK from surgical perspective
Original Note:
Consultation
Consultation Request
Date/Time Consultation Requested: 07/02/25 7:30a
Date/Time Consultation Performed: 07/02/25 9:30a
Requesting Provider: Dr. Donohue
Performing Provider: ALEJANDOR Alves for Dr. Kinney
Reason for Consultation: new onset Afib
Medical History
-
History of Present Illness:
Mr. Brito is a 75 yo male with HTN, COPD, smoker, HLD and gastric cancer, who presents for elective gastrectomy for recently diagnosed gastric cancer. He is s/p partial gastrectomy with liver resection by Dr. Sweeney on 06/29/25. Post-op he developed
rapid Afib treated with IV Lopressor then IV Cardizem and he converted back to NSR. His [id number] score is at least 3 (age, HTN).
Past Medical History
Past Medical History: Other (as above)
Past Surgical History: Other (as above)
Social History
Tobacco: Smoker
Family History
Family History: Reviewed & Not Pertinent
Allergies / Home Medications
Allergy/AdvReac Type Severity Reaction Status Date / Time
bupropion (From Wellbutrin) Allergy 'very out Verified 06/29/25 11:17
of it,
couldn't
focus on
anything'
lidocaine (From Xylocaine) Allergy Anaphylaxis Verified 06/29/25 11:17
in dental
office
paroxetine (From Paxil) Allergy 'very out Verified 06/29/25 11:17
of it,
couldn't
focus on
anything'
pollen extracts Allergy seasonal Verified 06/29/25 11:17
allergies
sertraline (From Zoloft) Allergy 'very out Verified 06/29/25 11:17
of it,
couldn't
focus on
anything'
�Medication �Instructions �Recorded �Confirmed �Type
albuterol sulfate 90 mcg/actuation 2 puff inhalation QID PRN SOB 04/15/25 06/29/25 History
aerosol inhaler (Ventolin HFA)
aspirin 81 mg tablet 81 mg PO DAILY 04/15/25 06/29/25 History
atorvastatin 40 mg tablet 40 mg PO HS 04/15/25 06/29/25 History
clonidine HCl 0.2 mg tablet 0.2 mg PO BID 04/15/25 06/29/25 History
fluticasone furoate 200 1 inh inhalation DAILY 04/15/25 06/29/25 History
mcg-vilanterol 25 mcg/dose
inhalation powder (Breo Ellipta)
hydralazine 50 mg tablet 50 mg PO BID 04/15/25 06/29/25 History
lisinopril 40 mg tablet 40 mg PO DAILY 04/15/25 06/29/25 History
nebivolol 10 mg tablet 10 mg PO HS 04/15/25 06/29/25 History
pantoprazole 40 mg tablet,delayed 40 mg PO HS 04/15/25 06/29/25 History
release (Protonix)
umeclidinium 62.5 mcg/actuation 1 inh inhalation DAILY 04/15/25 06/29/25 History
blister powder for inhalation
(Incruse Ellipta)
buspirone 5 mg tablet 5 mg PO BID 06/22/25 06/29/25 History
furosemide 20 mg tablet 20 mg PO Q48H 06/22/25 06/29/25 History
Review of Systems
-
History Source: Patient
All other systems: Negative unless noted
Physical Exam
Vital Signs
Temp Pulse Resp BP Pulse Ox
98.4 F 71 16 125/58 96
07/02/25 07:05 07/02/25 08:11 07/02/25 08:11 07/02/25 07:05 07/02/25 08:11
Lab Results
07/02/25 05:47
07/02/25 05:47
Troponin I 0.034 ng/ml 07/02/25 05:47
Physical Exam
General: No Apparent Distress
HEENT: Normocephalic and Moist Mucous Membranes
Respiratory: Clear
Cardiac: S1/S2 and Regular Rhythm
Breast: Deferred by me
GI: Soft
Musculoskeletal: No Edema
Skin: Warm and Dry
Neuro: AO x 3
Psych: Calm
Impression / Plan
-
Afib - with RVR, acute post-op.
- treated with IV Lopressor then IV Cardizem and converted to NSR.
- maintaining NSR.
- continue to monitor on tele.
- check echo.
- [id number] VASc score is at least 3 (age, HTN).
- will spot him this short episode of Afib post-op and continue to monitor. If Afib recurs, then he will need OAC therapy.
- continue IV Lopressor 2.5mg Q6h since NPO.
HTN - stable on meds.
- continue to monitor with IV Lopressor.
Gastric cancer - s/p partial gastrectomy with liver resection by Dr. Sweeney.
- post-op care per Dr. Sweeney.
Data Reviewed
-
EKG: Tracing Personally Visualized and interpreted
Labs: Labs Reviewed by me
[2025-07-02 11:10] VITALS: BP 123/79
--- NOTE | 2025-07-02 11:45 | CM ---
CM following re: discharge planning.
Reviewed pt's chart, met with pt.
Pt is POD#2 S/p partial gastrectomy and liver resection, continue supportive care.
PT and OT continue recommending SNF level of care A referral to [facility] made yesterday and per [facility] business continuity planning director pt will be accepted for admission when medically stable.
D/C plan: [facility] when medically stable.
CM will follow with discharge plan updates as hospitalization progresses
[2025-07-02] MEDS: FLUSH (NSS) 1 FLUSH IV (12:28)
[2025-07-02 13:56] VITALS: BMI 29.9
[2025-07-02 15:33] VITALS: BP 130/72
[2025-07-02 19:11] VITALS: BP 153/75
[2025-07-02 23:00] VITALS: BP 159/78
[2025-07-03] MEDS: TORADOL 15 MG IV ×2 (00:34→06:30)
[2025-07-03] MEDS: APRESOLINE 10 MG IV ×3 (03:19→18:23)
[2025-07-03 03:48] VITALS: BP 172/76
[2025-07-03] MEDS: MORPHINE SULFATE 2 MG IV (05:03)
[2025-07-03 07:05] VITALS: BP 175/81
[2025-07-03] MEDS: SPIRIVA RESPIMAT 2.5 MCG 2 PUFF INH (07:54)
[2025-07-03] MEDS: SYMBICORT 160/4.5 MCG INHALER 2 PUFF INH ×2 (07:55→19:21)
[2025-07-03] MEDS: NSS (PRESERVATIVE FREE) 10 ML IV (08:36)
[2025-07-03] MEDS: PROTONIX IV 40 MG IV (08:37)
[2025-07-03] MEDS: HEPARIN 5000 UNITS SC (08:37)
[2025-07-03] MEDS: NICODERM TRANSDERMAL 21 MG TRANSDERM (08:44)
--- NOTE | 2025-07-03 09:10 | W.PN.GENERIC ---
Assessment / Plan
-
S/p Partial gastrectomy and liver resection POD #4
Continue to do well.
Tolerated clear liq - will advanced to full liquid
Ok change IV cardiac meds to PO
Eliquis started
IV pain meds dc'd
OOB and ambulate
Ask case mgt to see pt re potential SNIF placement
Await path
Physician Progress Note
Subjective
C/o poor sleep last night, but denied N/V. The abdominal incisional pain better.
Objective
Vital Signs
Temp Pulse Resp BP Pulse Ox
98.3 F 76 16 175/81 98
07/03/25 07:05 07/03/25 07:55 07/03/25 07:55 07/03/25 07:05 07/03/25 07:55
Lab Results
07/02/25 05:47
07/02/25 05:47
Abd - Soft. Incision - CDI
[2025-07-03 11:05] VITALS: BP 132/65
[2025-07-03 14:20] LABS: Hematocrit 30.5 % (39.0-52.0); Hemoglobin 10.4 g/dL (13.0-18.0); Mean Corp Hgb Conc. 34.1 g/dL (33.0-37.0); Mean Corpuscular Volume 85.4 fL (80.0-94.0); Platelet Count 147 10^3/uL (130-400); Red Cell Dist. Width 13.2 % (11.5-14.5)
[2025-07-03 14:40] LABS: Blood Urea Nitrogen 7 mg/dl (9-20); Calcium 8.7 mg/dl (8.4-10.2); Carbon Dioxide 25 mmol/L (22-30); Chloride 109 mmol/L (98-107); Estimated Creatinine Clearance 96 ml/min; Glucose 103 mg/dl (70-99); Potassium 3.7 mmol/L (3.5-5.1); Sodium 140 mmol/L (135-145); eGFR > 60.00
[2025-07-03] MEDS: LASIX 20 MG PO (15:54)
[2025-07-03 15:55] VITALS: BP 164/87
[2025-07-03] MEDS: D5/0.9% SODIUM CHLORIDE IV (15:57)
[2025-07-03] MEDS: PERCOCET 5/325 1 TABLET PO (17:28)
--- NOTE | 2025-07-03 18:39 | W.PN.HOSP.TC ---
Today's Communication/Plan
-
Diet Advanced
PO meds resumed
Continue to monitor on telemetry
Assessment / Plan
Assessment / Plan
Physical Exam
General: Other (NG tube in place draining drainage)
HEENT: Normocephalic
Respiratory: Clear Bilaterally
Cardiac: S1/S2 and Regular Rhythm
GI: Soft and Other (Incisions intact to abdomen ice pack in place)
Genito-urinary: Estevez Catheter (Draining yellow in color)
Musculoskeletal:No Cyanosis and No Edema
Skin: Warm and Dry
Neuro: AAOx3.
Psych: Other (Currently still sedated postop anesthesia)
Assessment/Plan
75-year-old male with past medical history of COPD, current smoker, hypertension, hyperlipidemia, gastric ulcer, GERD, CHF, iron deficiency anemia, history of gastric ulcer presenting for elective gastrectomy with Ese-en-Y anastomosis for recently
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 No operative complications. Patient has NG tube and Estevez catheter. Labs show hemoglobin of 10.8. Hospitalist consult for medication management this patient will be strict NPO. Continue IV
fluids. Hold all oral medications. Hold Lasix. As needed hydralazine in place of antihypertensive medications.
#Status post gastrectomy with Ese-en- Y anastomosis secondary to malignant neoplasm with tumor invading into liver
- Diet advanced as per Dr. Sweeney
- Pain control per attending Dr. Petey Sweeney
- IV Protonix 40 mg daily
- IV cefazolin as per Dr. Petey Sweeney
- Follow CBC, CMP, INR
#Atrial Fibrillation with Rapid Ventricular Response
#Episodes of Asymptomatic Bradycardia
-IV Cardizem was given -- converted to normal sinus rhythm after that
-PRN IV Metoprolol
-30 days of AC when OK from surgical perspective -- Eliquis can be started this evening as per Dr. Sweeney
-Additionally, he should follow up with his primary lamp shade sewer for consideration of a 30 day monitor to eval for AF
-Continue to monitor on telemetry
#Anemia
#Acute anemia multifactorial blood loss and hemodilution
- Post-op, decreasing
- Monitor
#History of gastric ulcer age 14
-Protonix IV-->PO otday
#COPD no acute exacerbation
#Active smoker-1 pack a day per nurse at bedside
-Cessation order advisement
-nicotine patch 21 mg
- Continue Incruse Ellipta
- Albuterol nebs as needed
#HTN�benign
- Resume home PO meds
- Clonidine patch placed on 06/30/25 but now stopped since transitioning to PO Clonidine
#HLD
- Resumed home atorvastatin 40 mg daily
#COPD, current smoker, CHF?, iron deficiency anemia
DVT Prophylaxis: Subcutaneous heparin
Code Status: Full code
Anticipated Discharge: 24 - 48 hours
Subjective/Interval History
-
Date of Service: July 03, 2025
Patient was seen and examined. He denied fever, chest pain, SOB, abdominal pain or any other symptoms or complaints.
Objective Data
-
Labs:
Laboratory Results
07/03/25
13:58
WBC 6.6
Hgb 10.4 L
Hct 30.5 L
Plt Count 147 D
Sodium 140
Potassium 3.7
Chloride 109 H
Carbon Dioxide 25
BUN 7 L
Creatinine 0.7
Glucose 103 H
Calcium 8.7
Vital Signs:
Vital Signs
Temp Pulse Resp BP Pulse Ox
98.9 F 86 16 177/96 97
07/03/25 15:55 07/03/25 18:23 07/03/25 15:55 07/03/25 18:23 07/03/25 15:55
I&O
07/02/25 07/03/25 07/04/25
06:59 06:59 06:59
Intake Total 1300 / 1300 2645 / 2645 300 / 300
Output Total 2625 / 2625 400 / 400 1930 / 193
Balance -1325 / -1325 2245 / 2245 -1630 / -1630
[2025-07-03] MEDS: ELIQUIS 5 MG PO (20:00)
[2025-07-03] MEDS: BUSPAR 5 MG PO (20:01)
[2025-07-03 20:40] VITALS: BP 165/85
[2025-07-03] MEDS: MELATONIN 3 MG PO (21:31)
[2025-07-03] MEDS: BYSTOLIC 10 MG PO (21:31)
[2025-07-03] MEDS: LIPITOR 40 MG PO (21:31)
[2025-07-03] MEDS: ZOFRAN 4 MG IV (22:29)
[2025-07-03 23:50] VITALS: BP 140/84
[2025-07-04] VITALS (7 sets, daily range): BP systolic 98–122; BP diastolic 43–70
[2025-07-04] MEDS: CATAPRES 0.2 MG PO ×2 (00:16→20:10)
--- NOTE | 2025-07-04 01:20 | PTCARENOTE ---
Pt continues to have elevated HR 170-180 with ambulation, denies SOB or dizziness.
[2025-07-04] MEDS: LOPRESSOR 2.5 MG IV (01:59)
--- NOTE | 2025-07-04 02:04 | PTCARENOTE ---
[facility] notified of HR, 2.5ml Lopressor given STAT @ this time. Hr
[2025-07-04 04:46] LABS: Hematocrit 29.0 % (39.0-52.0); Hemoglobin 9.5 g/dL (13.0-18.0); Mean Corp Hgb Conc. 32.8 g/dL (33.0-37.0); Mean Corpuscular Volume 86.6 fL (80.0-94.0); Platelet Count 146 10^3/uL (130-400); Red Cell Dist. Width 13.2 % (11.5-14.5)
[2025-07-04 05:07] LABS: Blood Urea Nitrogen 11 mg/dl (9-20); Calcium 8.5 mg/dl (8.4-10.2); Carbon Dioxide 25 mmol/L (22-30); Chloride 108 mmol/L (98-107); Estimated Creatinine Clearance 84 ml/min; Glucose 125 mg/dl (70-99); Magnesium 1.9 mg/dl (1.6-2.3); Potassium 3.6 mmol/L (3.5-5.1); Sodium 137 mmol/L (135-145); eGFR > 60.00
[2025-07-04] MEDS: BUSPAR 5 MG PO ×2 (07:43→20:10)
[2025-07-04] MEDS: ZESTRIL 40 MG PO (07:43)
[2025-07-04] MEDS: APRESOLINE 50 MG PO (07:44)
[2025-07-04] MEDS: NICODERM TRANSDERMAL 21 MG TRANSDERM (07:45)
[2025-07-04] MEDS: SPIRIVA RESPIMAT 2.5 MCG 2 PUFF INH (07:45)
[2025-07-04] MEDS: ELIQUIS 5 MG PO ×2 (07:45→20:10)
[2025-07-04] MEDS: SYMBICORT 160/4.5 MCG INHALER 2 PUFF INH ×2 (07:45→20:36)
--- NOTE | 2025-07-04 08:21 | W.PN.HOSP.TC ---
Today's Communication/Plan
-
Continue to monitor on telemetry
See plan
Assessment / Plan
Assessment / Plan
Physical Exam
General: Other (NG tube in place draining drainage)
HEENT: Normocephalic
Respiratory: Clear Bilaterally
Cardiac: S1/S2 and Regular Rhythm
GI: Soft and Other (Incisions intact to abdomen ice pack in place)
Genito-urinary: Estevez Catheter (Draining yellow in color)
Musculoskeletal:No Cyanosis and No Edema
Skin: Warm and Dry
Neuro: AAOx3.
Psych: Other (Currently still sedated postop anesthesia)
Assessment/Plan
75-year-old male with past medical history of COPD, current smoker, hypertension, hyperlipidemia, gastric ulcer, GERD, CHF, iron deficiency anemia, history of gastric ulcer presenting for elective gastrectomy with Ese-en-Y anastomosis for recently
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 No operative complications. Patient has NG tube and Estevez catheter. Labs show hemoglobin of 10.8. Hospitalist consult for medication management this patient will be strict NPO. Continue IV
fluids. Hold all oral medications. Hold Lasix. As needed hydralazine in place of antihypertensive medications.
#Status post gastrectomy with Ese-en- Y anastomosis secondary to malignant neoplasm with tumor invading into liver
- Diet advanced as per Dr. Sweeney
- Pain control per attending Dr. Petey Sweeney
- IV Protonix 40 mg daily
- IV cefazolin as per Dr. Petey Sweeney
- Follow CBC, CMP, INR
#Atrial Fibrillation with Rapid Ventricular Response
#Episodes of Asymptomatic Bradycardia
-IV Cardizem was given -- converted to normal sinus rhythm after that
-PRN IV Metoprolol
-30 days of AC when OK from surgical perspective -- Eliquis can be started this evening as per Dr. Sweeney
-Additionally, he should follow up with his primary route sales associate for consideration of a 30 day monitor to eval for AF
-RVR occurred again on 07/04/25 so Diltiazem 240 mg HS started, appreciate cardiology
-Continue to monitor on telemetry
#Hypotensions -- suspected from resuming all PO hypertensives at once on 07/04/25
-Holding again the Hydralazine, Lasix and Lisinopril (these were given on 07/04/25 followed by hypotension with SBP in the upper 80s to low 90s)
-Gave LR IV 500 cc fluid bolus with improvement
-Continue Diltiazem for the A-Fib and continue Clonidine
#Anemia
#Acute anemia multifactorial blood loss and hemodilution
- Post-op, decreased
- Monitor
#History of gastric ulcer age 14
-Protonix IV-->PO
#COPD no acute exacerbation
#Active smoker-1 pack a day per nurse at bedside
-Cessation order advisement
-nicotine patch 21 mg
- Continue Incruse Ellipta
- Albuterol nebs as needed
#HTN�benign
- Continue Clonidine and Diltiazem but hold Hydralazine, Lasix and Lisinopril (these were given on 07/04/25 followed by hypotension with SBP in the upper 80s to low 90s)
- Clonidine patch placed on 06/30/25 but now stopped since transitioning to PO Clonidine
#HLD
- Resumed home atorvastatin 40 mg daily
#COPD, current smoker, CHF?, iron deficiency anemia
DVT Prophylaxis: Eliquis
Code Status: Full code
Anticipated Discharge: 24 - 48 hours
Subjective/Interval History
-
Date of Service: July 04, 2025
Patient was seen and examined. He denied any symptoms or complaints.
Objective Data
-
Labs:
Laboratory Results
07/04/25
04:17
WBC 8.2
Hgb 9.5 L
Hct 29.0 L
Plt Count 146
Sodium 137
Potassium 3.6
Chloride 108 H
Carbon Dioxide 25
BUN 11
Creatinine 0.8
Glucose 125 H
Calcium 8.5
Vital Signs:
Vital Signs
Temp Pulse Resp BP Pulse Ox
97.6 F 100 16 112/70 96
07/04/25 07:15 07/04/25 07:46 07/04/25 07:46 07/04/25 07:44 07/04/25 07:46
I&O
07/03/25 07/04/25 07/05/25
06:59 06:59 06:59
Intake Total 2645 / 2645 1380 / 1380
Output Total 400 / 400 1930 / 1930
Balance 2245 / 2245 -550 / -550
[2025-07-04] MEDS: CATAPRES PO (10:19)
--- NOTE | 2025-07-04 10:31 | W.PN.GENERIC ---
Assessment / Plan
-
S/p partial gastrectomy with liver resection POD #5
Went into AF but back to NSR
Mgt as per medicine and cardiology services
Appreciate their help
Surgically doing well
Will advance his diet to soft
DC or Tsf to SNIF when ok with medicine and cardiology services
OOB and ambulate
Await path
Physician Progress Note
Subjective
No complaints. Some incisional pain when moving. Tolerated full liquid diet
Objective
Vital Signs
Temp Pulse Resp BP Pulse Ox
97.6 F 76 16 89/46 96
07/04/25 07:15 07/04/25 10:19 07/04/25 07:46 07/04/25 10:19 07/04/25 07:46
Lab Results
07/04/25 04:17
07/04/25 04:17
Abd - soft ND Incision - CDI
--- NOTE | 2025-07-04 11:30 | W.PN.CD ---
Today's Communication / Plan
-
switch nebivolol to dilt
cont AC with Eliquis
F/u with his home dinkey operator in ~2 weeks after dc
Impression / Plan
-
A/P: 75 yo male with HTN, COPD, smoker, HLD and gastric cancer, who presents for elective gastrectomy for recently diagnosed gastric cancer. He is s/p partial gastrectomy with liver resection by Dr. Sweeney on 06/29/25.
He has had recurrent paroxysms of AF.
Afib - with RVR, acute post-op. back in SR
- recommend continued AC
- switch nebiovolol to dilt
- f/u with home caridologist
HTN - stable on meds.
- continue to monitor with IV Lopressor.
Gastric cancer - s/p partial gastrectomy with liver resection by Dr. Sweeney.
- post-op care per Dr. Sweeney.
Physical Exam
Vital Signs/Labs
Vital Signs
Temp Pulse Resp BP Pulse Ox
98.0 F 69 18 98/43 97
07/04/25 11:00 07/04/25 11:00 07/04/25 11:00 07/04/25 11:00 07/04/25 11:00
07/04/25 04:17
07/04/25 04:17
PT 15.1 Sec (11.4-14.6) H 06/30/25 05:38
INR 1.13 06/30/25 05:38
APTT 29.2 Sec (23.4-35.0) 06/22/25 09:23
Magnesium 1.9 mg/dl (1.6-2.3) 07/04/25 04:17
LAB Results
07/01/25 07/02/25
21:33 05:47
Troponin I 0.016 0.034
Physical Exam
Constitutional: No acute distress and Comfortable
EENT: Anicteric
Cardiovascular: Rhythm & rate is regular and Pedal edema is absent
Respiratory: Respiratory effort normal and Lungs clear to auscul.
GI: Soft
Neuro/Psych: AO x 3
Data Reviewed
-
Date of Service: July 04, 2025
Medical Decision Making: Reviewed Test Results
EKG: Tracing Personally Visualized and interpreted (af then sr)
Echo: Tracing Personally Visualized and interpreted
Labs: Labs Reviewed by me
[2025-07-04] MEDS: LR 500 IV (15:11)
--- NOTE | 2025-07-04 16:06 | OR.RPT ---
Operative Report
Operative Report
Date of Operation: June 29, 2025
Preoperative Diagnosis: Stomach Cancer of the body - C162
Postoperative Diagnosis: Stomach Cancer of the body invading the hepatic segment III
Surgeon: Petey Sweeney M.D.
Operation: Partial gastrectomy � 15445 & Resection of the hepatic segment III
Anesthesia: GET
Estimated Blood Loss: 400 cc
Drains: None
Specimen: Body of the stomach, hepatic segment III, and omentum
Complications: None
Procedure:
The patient was brought to the operating room and placed in the supine position. After induction of general anesthesia, the abdomen was prepped and draped in the usual sterile manner. A 1 cm infraumbilical incision was made, and an attempt was made
to place a Verress needle without success. Due to his previous laparotomy for gastric bleeding, a decision was made to convert to open laparotomy. The old upper midline incision was reopened with a #10 blade. Entering the intraperitoneal space,
significant adhesions were encountered. Cautiously, the adhesions were taken down using Metzbaum scissors and electrocautery. The stomach was identified, and the upper half of it and the surrounding fat were black. Although there is no history of
ink injection preoperatively, this is most likely from endoscopic injection and not ischemia. Careful palpation of the stomach revealed the tumor in the anterior wall of the stomach body, which was noted to be invading the hepatic segment III.
Further exploration showed no other liver or peritoneal disease. Based on this information, a decision was made to proceed with distal gastrectomy, including the hepatic segment III as an en bloc resection.
First, the hepatic segment III was resected using an [employer] bipolar radiofrequency energy device by transecting the liver parenchyma, and the vessels were carefully ligated with a Harmonic Scalpel. The larger vessels were also ligated with #3-0
chromic sutures. The liver segment was completely resected and left on the stomach.
Next, attention was turned to the stomach. The momentum was resected from the transverse colon and the stomach, and it was sent to the pathology department for permanent section.
The stomach was further mobilized by ligating the short gastric vessels with a Ligasure. The lesser sac was entered, and the lesser curvature was similarly mobilized. The left gastric artery was identified, ligated, and divided using Ligasure, ties,
and endoGIA katerina. The stomach was divided proximally about 2 cm above the tumor with EndoGIA purple staplers and distally to the pylorus. The specimen was removed and sent to pathology for frozen section analysis, showing grossly negative
margins. Reconstruction was performed via gastroduodenostomy. The anastomosis was constructed using a [id number], end-to-end technique with 3.5mm RITO staplers, followed by a 3.0 Prolene suture in a running fashion. The staple line was reinforced
with #3-0 silk in the serosal layer in an interrupted manner. Hemostasis was meticulously achieved throughout the procedure.
The abdomen was irrigated with warm saline and inspected for bleeding. The fascia was closed with running #1 Vicryl suture, and the skin was closed with katerina. The patient tolerated the procedure well and was transferred to the recovery room in
stable condition. Dry sterile dressings were applied to all incisions. The final instruments, needles, and sponge counts were correct. The patient was extubated and transferred to recovery.
[2025-07-04] MEDS: MELATONIN 3 MG PO (22:30)
[2025-07-04] MEDS: CARDIZEM CD 240 MG PO (22:30)
[2025-07-04] MEDS: PROTONIX 40 MG PO (22:30)
[2025-07-04] MEDS: LIPITOR 40 MG PO (22:30)
[2025-07-05 03:00] VITALS: BP 131/63
[2025-07-05 06:42] LABS: Hematocrit 26.1 % (39.0-52.0); Hemoglobin 8.7 g/dL (13.0-18.0); Mean Corp Hgb Conc. 33.3 g/dL (33.0-37.0); Mean Corpuscular Volume 86.1 fL (80.0-94.0); Platelet Count 151 10^3/uL (130-400); Red Cell Dist. Width 13.3 % (11.5-14.5)
[2025-07-05 06:48] LABS: Blood Urea Nitrogen 18 mg/dl (9-20); Calcium 8.2 mg/dl (8.4-10.2); Carbon Dioxide 28 mmol/L (22-30); Chloride 108 mmol/L (98-107); Estimated Creatinine Clearance 67 ml/min; Glucose 112 mg/dl (70-99); Potassium 3.4 mmol/L (3.5-5.1); Sodium 137 mmol/L (135-145); eGFR > 60.00
[2025-07-05 07:15] VITALS: BP 126/66
[2025-07-05] MEDS: SYMBICORT 160/4.5 MCG INHALER 2 PUFF INH (07:36)
[2025-07-05] MEDS: SPIRIVA RESPIMAT 2.5 MCG 2 PUFF INH (07:37)
--- NOTE | 2025-07-05 07:58 | W.PN.GENERIC ---
Assessment / Plan
-
S/p Partial gastrectomy and liver resection POD #6
Surgically doing well
DC when ok with medicine and cardiology service to [place] [facility]
Encourage ambulation
Await path
Physician Progress Note
Subjective
No complaints. Anxious to be discharged. Tolerating soft diet
Objective
Vital Signs
Temp Pulse Resp BP Pulse Ox
98.2 F 80 16 126/66 97
07/05/25 07:15 07/05/25 07:37 07/05/25 07:37 07/05/25 07:15 07/05/25 07:15
Lab Results
07/05/25 05:53
07/05/25 05:53
Abd - soft NT. Incision - CDI
--- NOTE | 2025-07-05 08:35 | W.PN.CD ---
Today's Communication / Plan
-
Decrease diltiazem to 120 mg daily for bradycardia
Continue Eliquis
Okay for discharge from cardiovascular standpoint
Hydralazine and lisinopril currently on hold for low BPs. Add back as tolerated.
He will schedule follow-up with his outpatient hadoop admin.
Impression / Plan
-
A/P: 75 yo male with HTN, COPD, smoker, HLD and gastric cancer, who presents for elective gastrectomy for recently diagnosed gastric cancer. He is s/p partial gastrectomy with liver resection by Dr. Sweeney on 06/29/25.
He has had recurrent paroxysms of AF.
Afib - with RVR, acute post-op. back in SR
- recommend continued AC with Eliquis
- Continue diltiazem (decrease to 120 mg daily given bradycardia)
- f/u with home caridologist
HTN - stable on meds.
- continue to monitor
Gastric cancer - s/p partial gastrectomy with liver resection by Dr. Sweeney.
- post-op care per Dr. Sweeney.
Subjective: Denies cardiovascular symptoms. No recurrent atrial fibrillation on telemetry.
Physical Exam
Vital Signs/Labs
Vital Signs
Temp Pulse Resp BP Pulse Ox
98.2 F 80 16 126/66 97
07/05/25 07:15 07/05/25 07:37 07/05/25 07:37 07/05/25 07:15 07/05/25 07:15
07/05/25 05:53
07/05/25 05:53
PT 15.1 Sec (11.4-14.6) H 06/30/25 05:38
INR 1.13 06/30/25 05:38
APTT 29.2 Sec (23.4-35.0) 06/22/25 09:23
Magnesium 1.9 mg/dl (1.6-2.3) 07/04/25 04:17
Physical Exam
Constitutional: No acute distress and Comfortable
Cardiovascular: Rhythm & rate is regular, Pedal edema is absent, S1S2 is normal and Murmur/rub/gallop absent
Respiratory: Respiratory effort normal and Lungs clear to auscul.
Neuro/Psych: AO x 3
Data Reviewed
-
Date of Service: July 05, 2025
Medical Decision Making: Reviewed Test Results, Independent Historian Assessment, Test Interpretation and Review of Case with other Provider
EKG: Tracing Personally Visualized and interpreted
Echo: Report Reviewed by me
Labs: Labs Reviewed by me
[2025-07-05] MEDS: BUSPAR 5 MG PO (09:01)
[2025-07-05] MEDS: CATAPRES 0.2 MG PO (09:01)
[2025-07-05] MEDS: ELIQUIS 5 MG PO (09:01)
[2025-07-05] MEDS: NICODERM TRANSDERMAL 21 MG TRANSDERM (09:02)
--- NOTE | 2025-07-05 10:22 | W.DS.TRANS ---
DC Summary - Regulatory Affairs Director
-
Discharge Instructions:
Sleep Apnea Risk Intermediate
Discharge Diagnosis/Procedures Gastric Cancer
Diet Other diet
Additional Diets soft diet
Activity No strenuous activity
Driving Restrictions Not until seen by your Dr
Bathing Restrictions OK to Shower
Instructions:
Stand-Alone Forms:
Changes to Home Medications: Yes
Discharge Medications:
DC Medications w/original date entered in [employer]
albuterol sulfate 90 mcg/actuation aerosol inhaler (Ventolin HFA) 2 puff inhalation QID PRN SOB 04/15/25
aspirin 81 mg tablet 81 mg PO DAILY 04/15/25
atorvastatin 40 mg tablet 40 mg PO HS 04/15/25
clonidine HCl 0.2 mg tablet 0.2 mg PO BID 04/15/25
fluticasone furoate 200 mcg-vilanterol 25 mcg/dose inhalation powder (Breo Ellipta) 1 inh inhalation DAILY 04/15/25
hydralazine 50 mg tablet 50 mg PO BID 04/15/25
lisinopril 40 mg tablet 40 mg PO DAILY 04/15/25
nebivolol 10 mg tablet 10 mg PO HS 04/15/25
pantoprazole 40 mg tablet,delayed release (Protonix) 40 mg PO HS 04/15/25
umeclidinium 62.5 mcg/actuation blister powder for inhalation (Incruse Ellipta) 1 inh inhalation DAILY 04/15/25
buspirone 5 mg tablet 5 mg PO BID 06/22/25
furosemide 20 mg tablet 20 mg PO Q48H 06/22/25
Home Medication Changes
Pending Results: No
[2025-07-05 11:34] VITALS: BP 107/50
--- NOTE | 2025-07-05 11:43 | W.PN.HOSP.TC ---
Today's Communication/Plan
-
Patient stable for discharge today from hospitalist standpoint. Thank you for consulting us. We will sign off.
Assessment / Plan
Assessment / Plan
Physical Exam
General: Not in acute distress
HEENT: Normocephalic
Respiratory: Clear Bilaterally
Cardiac: S1/S2 and Regular Rhythm
GI: Soft and Other (Incisions intact to abdomen ice pack in place)
Musculoskeletal:No Cyanosis and No Edema
Skin: Warm and Dry
Neuro: AAOx3.
Assessment/Plan
75-year-old male with past medical history of COPD, current smoker, hypertension, hyperlipidemia, gastric ulcer, GERD, CHF, iron deficiency anemia, history of gastric ulcer presenting for elective gastrectomy with Ese-en-Y anastomosis for recently
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 No operative complications. Patient has NG tube and Estevez catheter. Labs show hemoglobin of 10.8. Hospitalist consult for medication management this patient will be strict NPO. Continue IV
fluids. Hold all oral medications. Hold Lasix. As needed hydralazine in place of antihypertensive medications.
#Status post gastrectomy with Ese-en- Y anastomosis secondary to malignant neoplasm with tumor invading into liver
- Diet advanced as per Dr. Sweeney
- Pain control per attending Dr. Petey Sweeney
- Protonix
- IV cefazolin dose and duration as per Dr. Petey Sweeney
- Follow CBC, CMP, INR
#Atrial Fibrillation with Rapid Ventricular Response
#Episodes of Asymptomatic Bradycardia
-IV Cardizem was given -- converted to normal sinus rhythm after that
-PRN IV Metoprolol
-30 days of AC when OK from surgical perspective -- Eliquis can be started this evening as per Dr. Sweeney
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
-RVR occurred again on 07/04/25 so Diltiazem 240 mg HS started---->decreased to 120 mg HS, appreciate cardiology
-Continue to monitor on telemetry
#Hypotension -- suspected from resuming all PO hypertensives at once on 07/04/25
-Holding again the Hydralazine, Lasix and Lisinopril (these were given on 07/04/25 followed by hypotension with SBP in the upper 80s to low 90s)
-Gave LR IV 500 cc fluid bolus with improvement
-Continue Diltiazem for the A-Fib and continue Clonidine
#Anemia
#Acute anemia multifactorial blood loss and hemodilution
- Post-op, decreased
- Monitor
#History of gastric ulcer age 14
-Protonix IV-->PO
#COPD no acute exacerbation
#Active smoker-1 pack a day per nurse at bedside
-Cessation order advisement
-nicotine patch 21 mg
- Continue Incruse Ellipta
- Albuterol nebs as needed
#HTN�benign
- Continue Clonidine and Diltiazem but hold Hydralazine, Lasix and Lisinopril (these were given on 07/04/25 followed by hypotension with SBP in the upper 80s to low 90s)
- Clonidine patch placed on 06/30/25 but now stopped since transitioning to PO Clonidine
#HLD
- Resumed home atorvastatin 40 mg daily
#COPD, current smoker, CHF?, iron deficiency anemia
DVT Prophylaxis: Eliquis
Code Status: Full code
Patient stable for discharge today from hospitalist standpoint. Thank you for consulting us. We will sign off.
Anticipated Discharge: Today
Subjective/Interval History
-
Date of Service: July 05, 2025
Patient was seen and examined. He denied any fever, chest pain, SOB or any other complaints.
Objective Data
-
Labs:
Laboratory Results
07/05/25
05:53
WBC 6.8
Hgb 8.7 L
Hct 26.1 L
Plt Count 151
Sodium 137
Potassium 3.4 L
Chloride 108 H
Carbon Dioxide 28
BUN 18
Creatinine 1.0
Glucose 112 H
Calcium 8.2 L
Vital Signs:
Vital Signs
Temp Pulse Resp BP Pulse Ox
98.5 F 55 16 107/50 100
07/05/25 11:34 07/05/25 11:34 07/05/25 11:34 07/05/25 11:34 07/05/25 11:34
I&O
07/04/25 07/05/25 07/06/25
06:59 06:59 06:59
Intake Total 1380 / 1380 1020 / 1020 480 / 480
Output Total 1929 / 1929
Balance -550 / -550 1020 / 1020 480 / 480
[2025-07-05] MEDS: KCL 40 MEQ PO (11:58)
[2025-07-05 12:03] VITALS: BP 125/59; BP 97/57; PULSE 51; O2SAT 96
[2025-07-05 13:57] VITALS: BP 116/56; BP 133/61; PULSE 60; O2SAT 97
--- NOTE | 2025-07-05 14:58 | CM ---
Discharge POC: [facility]. Required insurance auth as follows:
Approved from 07/05/25 through to and including 07/09/25, 5 days total, NRD and LCD is 07/09/25. Reference # [id number]. Concurrent review phone # .
Ambulance Auth # [id number].
Nurse to Nurse Report #: [phone]
Fax #: [phone]
[2025-07-05 15:25] VITALS: BP 105/52
--- NOTE | 2025-07-05 15:32 | CM ---
Patient has been medically cleared for discharge to [facility]. Ambulance transport scheduled for 6:30 pm.
== END 2025-07-05 18:25 | DRG 327 ==
LOC: 2 SOUTH 10:49
PROVIDERS: Hospitalist; Nurse Practitioner Gerontology; ADMITTING PHYSICIAN Surgery; CONSULT PHYSICIAN Internal Medicine Cardiovascular Disease; FAMILY PHYSICIAN Family Medicine; OTHER PHYSICIAN Hospitalist
PROC: 0DB60ZZ Excision of Stomach, Open Approach (ICD-10-PCS; 2025-06-29)
PROC: 0FB00ZZ Excision of Liver, Open Approach (ICD-10-PCS; 2025-06-29)
DX: C16.2 Malignant neoplasm of body of stomach (principal); D62 Acute posthemorrhagic anemia; I48.91 Unspecified atrial fibrillation; R00.1 Bradycardia, unspecified; I95.9 Hypotension, unspecified; J43.9 Emphysema, unspecified; F17.210 Nicotine dependence, cigarettes, uncomplicated; I11.0 Hypertensive heart disease with heart failure; I50.9 Heart failure, unspecified; K21.9 Gastro-esophageal reflux disease without esophagitis; E78.5 Hyperlipidemia, unspecified; Z53.31 Laparoscopic surgical procedure converted to open procedure; Z87.11 Personal history of peptic ulcer disease
CPT/HCPCS: 36415; 80048; 80053; 83735; 84443; 84484; 85025; 85027; 85610; 85730; 86850; 86900; 86901; 88304; 88307; 88309; 88329; 93005; 93306; 94640; 97116; 97163; 97167; 97530; 99406; C1776; C9250

== ENCOUNTER 2025-11-01 15:16 | Emergency (ER) | payer OTHER, SELFPAY ==
[2025-11-01 15:29] VITALS: BP 140/91
[2025-11-01 16:16] VITALS: BMI 27.4
[2025-11-01 16:19] VITALS: BP 139/78
[2025-11-01 16:21] VITALS: BP 139/78
--- NOTE | 2025-11-01 16:25 | ED.GENMED ---
History of Present Illness
General
Chief Complaint: Swelling
Time Seen by Provider: 11/01/25 15:53
History of Present Illness
History of Present Illness:
Margarito is a 75-year-old male with past medical history of A-fib, hypertension, lower extremity edema who presents after home health PT was concerned about worsening left lower extremity edema. Patient reports that he had surgery on the cervical
spine several weeks ago and since that has not been sleeping in his bed but rather sleeping in a chair as lying flat is more uncomfortable. Prior to surgery he had been sleeping with his legs elevated and edema had been relatively well-controlled
although still present. Is having some mild tenderness to the anterior aspect of his left miller. Small area of erythema which patient states has been there for several weeks.
Past History
Past History
ED Past Medical History: COPD, HTN and Other (Lymphedema)
Social History
Tobacco: Former smoker
Alcohol: None
Phy Exam
General Physical Exam
General Presentation: well appearing and no apparent distress
General Skin: warm and dry
General Habitus: normal
General Mental: alert
General Hydration: appears well hydrated
ENT Exam
ENT Exam: EOMI, pharynx normal, neck supple and normocephalic
Eye Exam
Eye Exam: PERRL, cornea clear and conjunctiva normal
Cardiovascular Exam
Cardiovascular Exam: regular rate/rhythm, no edema, no murmur and normal peripheral pulses
Pulmonary Exam
Pulmonary Exam: lungs clear, no respiratory distress, no rales, no crackles, no rhonchi, no stridor, no wheezing and no cough
Gastrointestinal Exam
Gastrointestinal Exam: normal bowel sounds, non tender, soft, no organomegaly, no pulsatile mass and non distended
Neurological Exam
Neurological Exam: alert, oriented x3, no motor deficits and speech normal
Musculoskeletal Exam
Musculoskeletal Exam: full ROM, edema (b/l LE edema. Left slightly worse than right) and other (3cm area of erythema to anterior left LE. )
Skin Exam
Skin Exam: normal color, warm/dry, no rash and no petechia
Psychiatric Exam
Psychiatric Exam: normal mood/affect
Scores
Heart Failure Risk
Heart Failure Risk Score: Yes
History of Stroke or TIA: No
History of intubation for respiratory distress: No
Heart rate on ED arrival >/= 110: No
SaO2 <90% on arrival on room air: No
HR >/=110 during 3min walk test (or too ill to perform test): No
ECG has acute ischemic changes: No
Urea >/=12mmol/L (BUN 33.6mg/dL): No
Serum CO2>/=35mmol/L: No
Troponin I or T elevated to MO Level (0.4mg/dL): No
NT-proBNP >/=5,000ng/L (5,000pg/ml): No
HF Risk Score: 0
Admission Status: LOW RISK 2.8% Consider discharge to home with f/u visit to PCP/Medicine Tech
Course
Orders/Labs/Results
Orders:
Orders
11/01/25 16:10
US Periph Venous LOWER Ext LT Urgent
Comment:
Reason For Exam: r/o DVT
11/01/25 16:27
BMP [Basic Metabolic Panel] Urgent
CBC/With Diff [Complete Blood Count/With Diff] Urgent
Abnormal Lab Results
11/01/25
16:27
RBC 3.91 L 10^6/uL
(4.70-6.10)
Hgb 9.0 L g/dL
(13.0-18.0)
Hct 30.2 L %
(39.0-52.0)
MCV 77.2 L fL
(80.0-94.0)
MCH 23.0 L pg
(27.0-31.0)
MCHC 29.8 L g/dL
(33.0-37.0)
RDW 18.2 H %
(11.5-14.5)
Absolute Neuts (auto) 7.0 H 10^3/uL
(1.4-6.5)
Absolute Lymphs (auto) 1.1 L 10^3/uL
(1.2-3.4)
Absolute Monos (auto) 0.7 H 10^3/uL
(0.1-0.6)
Neutrophils % 78.6 H %
(42.2-75.2)
Lymphocytes % 12.6 L %
(20.5-51.1)
Glucose 131 H mg/dl
(70-99)
11/01/25 16:27
11/01/25 16:27
Vital Signs
Initial and Last Documented VS:
Initial Vital Signs
Temp Pulse Resp BP Pulse Ox
36.8 C 70 18 140/91 98
11/01/25 15:29 11/01/25 15:29 11/01/25 15:29 11/01/25 15:29 11/01/25 15:29
Last Documented Vital Signs
Temp Pulse Resp BP Pulse Ox
36.8 C 87 23 139/78 97
11/01/25 15:29 11/01/25 18:15 11/01/25 18:20 11/01/25 16:21 11/01/25 18:20
MDM/Problems Addressed
Differential Diagnosis Includes:
Worsening LE edema due to decreased activity and position changes vs DVT
Left lower extremity ultrasound completed and negative for any DVT. On reevaluation patient provides more information that he typically uses KAYLYN stockings but has not been since his cervical spine surgery. He was taken off his Lasix several months
ago as it was causing issues with his blood pressure. 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 Discussed that edema is likely due to decreased activity, not using KAYLYN stockings, and not elevating
extremities. He will follow-up with PCP and fire sprinkler apparatus inspector. Return precautions discussed
*Pulse Oximetry
SaO2: 98
Oxygen Mode of Delivery: Room air
Patient hypoxic: no
*Critical Care Note
Total Time (30-74mins, 75-104mins- exclusive of procedures): Not Applicable
ED Attending Note
-
Portions of this chart may have been created with voice recognition software.� Occasional wrong word or��sound alike� substitutions may have occurred due to the inherent limitations of voice recognition software.
Discharge Plan
Departure
Patient Disposition: Home (Routine Discharge)
Date of Disposition: 11/01/25
Time of Disposition: 18:53
Patient with high blood pressure during this ER visit?: No
Discharge Problem:
Edema
Instructions: Swelling
Prescriptions:
No Action
atorvastatin 40 mg Tablet
40 mg PO HS
pantoprazole [Protonix] 40 mg Tablet,Delayed Release (Dr/Ec)
40 mg PO HS
hydralazine 50 mg Tablet
50 mg PO BID
albuterol sulfate [Ventolin HFA] 90 mcg/actuation Hfa Aerosol Inhaler
2 puff INHALATION QID PRN (Reason: SOB)
Incruse Ellipta 62.5 mcg/actuation Blister With Device
1 inh INHALATION DAILY
fluticasone furoate-vilanterol [Breo Ellipta] 200-25 mcg/dose Blister With Device
1 inh INHALATION DAILY
clonidine HCl 0.2 mg Tablet
0.2 mg PO BID
lisinopril 40 mg Tablet
40 mg PO DAILY
furosemide 20 mg Tablet
20 mg PO Q48H
buspirone 5 mg Tablet
5 mg PO BID
diltiazem HCl 120 mg Capsule,Extended Release 24hr
120 mg PO HS Qty: 30 0RF
Eliquis 5 mg Tablet
5 mg PO BID Qty: 30 0RF
Referrals:
NONE,* [Family Provider, Internal Medicine]
Activity Restrictions/Additional Instructions:
Please use compression stockings daily. Begin elevating your legs at bedtime and throughout the day as able. Follow-up with PCP if swelling does not improve within a few days.
Interventions
Interventions:
*Risk Screen - Suicide Last Done: 11/01/25 15:20
*General Assessment Last Done: 11/01/25 16:16
*Neglect/Abuse Screening Last Done: 11/01/25 16:16
*ED COVID-19 Vaccine History Last Done: 11/01/25 15:20
*ED Influenza Vaccine History Last Done: 11/01/25 15:20
[facility] Fall Risk Assessment Tool Last Done: 11/01/25 16:20
ED- Cardiac Assessment Last Done: 11/01/25 16:45
ED- Pulmonary Assessment Last Done: 11/01/25 16:45
ED-Skin Assessment Last Done: 11/01/25 16:45
Discharge Date and Time
Print Language: NAURUAN
[2025-11-01 16:39] LABS: Hematocrit 30.2 % (39.0-52.0); Hemoglobin 9.0 g/dL (13.0-18.0); Mean Corp Hgb Conc. 29.8 g/dL (33.0-37.0); Mean Corpuscular Volume 77.2 fL (80.0-94.0); Nucleated Red Blood Cells % 0 % (-); Platelet Count 244 10^3/uL (130-400); Red Cell Dist. Width 18.2 % (11.5-14.5)
[2025-11-01 16:58] LABS: Blood Urea Nitrogen 11 mg/dl (9-20); Calcium 8.5 mg/dl (8.4-10.2); Carbon Dioxide 29 mmol/L (22-30); Chloride 104 mmol/L (98-107); Estimated Creatinine Clearance 75 ml/min; Glucose 131 mg/dl (70-99); Potassium 4.1 mmol/L (3.5-5.1); Sodium 135 mmol/L (135-145); eGFR > 60.00
[2025-11-01 19:00] VITALS: BP 134/82
== END 2025-11-01 19:20 | disposition home or self-care (01) ==
LOC: EMR 15:16
PROVIDERS: Surgery Trauma Surgery; EMERGENCY PHYSICIAN Emergency Medicine
DX: R60.0 Localized edema (principal); I10 Essential (primary) hypertension; I48.91 Unspecified atrial fibrillation; J44.9 Chronic obstructive pulmonary disease, unspecified; Z87.891 Personal history of nicotine dependence
CPT/HCPCS: 99284; 80048; 85025; 93971